=== PATIENT | female | born 1970 | race Two or more races ===

== ENCOUNTER 2016-06-07 12:03 | Emergency (ER) | payer OTHER ==
[~2016-06-07] VITALS: Ht 157.5 cm; Wt 78.0 kg
[2016-06-07 12:09] VITALS: Ht 157.5 cm; Wt 78.0 kg
[2016-06-07] MEDS ORDERED: SOD CHLORIDE 0.9% 1,000 ML IV STA (12:12)
[2016-06-07] MEDS ORDERED: DIPHENHYDRAMINE 50 MG INJ IV ONE (12:30)
[2016-06-07] MEDS ORDERED: METOCLOPRAMIDE 10 MG INJ IVPB ONE (12:30)
--- NOTE | 2016-06-07 13:31 | ERD ---
ER Documentation Chief Complaint Date/Time DATE: 06/07/16 TIME: 13:29 Chief Complaint C/O SUAZO. NEURO STATUS INTACT. HPI This 46-year-old female employee presents to the ER with nausea and a migraine headache. She has a history of migraines. This is on the right side her head that same side that she usually gets her migraines on. She has photophobia. No meningismus no fevers. She has no focal neurological weakness. ROS All systems reviewed and are negative except as per history of present illness. Physical Exam Vitals Vital Signs Date Time Temp Pulse Resp B/P Pulse Ox O2 Delivery O2 Flow Rate FiO2 06/07/16 12:09 98.0 107 18 129/67 100 Physical Exam Const: [] Mild distress Head: Atraumatic Eyes: Normal Conjunctiva, EOMI, PRL ENT: Normal External Ears, Nose and Mouth. Neck: Full range of motion..~ No meningismus. Neur: Awake and alert and oriented 3, cranial nerves II through XII intact, cerebellar intact finger to nose, normal gait Results 24 hrs Current Medications Medications (Trade) Dose Ordered Sig/Alba Route PRN Reason Start Time Stop Time Status Last Admin Dose Admin Sodium Chloride (NS) 1,000 ml @ 1,000 mls/hr Q1H STAT IV 06/07/16 12:12 06/07/16 13:11 DC 06/07/16 12:50 Diphenhydramine HCl (Benadryl) 12.5 mg ONCE ONCE IV 06/07/16 12:30 06/07/16 12:31 DC 06/07/16 12:50 Metoclopramide HCl (Reglan) 10 mg ONCE ONCE IVPB 06/07/16 12:30 06/07/16 12:31 DC 06/07/16 12:50 Procedures/MDM Migraine headache similar in character to her prior migraines. I gave her a headache cocktail of Benadryl 12.5 mg IV, Reglan 10 mg IV piggyback in normal saline 1 L. After this she felt much better headache was resolving and she wondered return to work. I have very low suspicion for meningitis or subarachnoid hemorrhage because of the character of the headache. Discharging primary care follow up in next 2-3 days. Departure Diagnosis: Primary Impression: Nausea Additional Impression: Migraine Condition: Stable Patient Instructions: Migraine Headache: Stages and Treatment Additional Instructions: Call your primary care doctor TOMORROW for an appointment during the next 2-3 days.See the doctor sooner or return here if your condition worsens before your appointment time. GERALDO BRASHER DO Jun 07, 2016 13:31
== END 2016-06-07 13:45 | disposition home or self-care (01) ==
LOC: E/R 12:03
DX: R11.0 Nausea (principal); G43.909 Migraine, unspecified, not intractable, without status migrainosus
CPT/HCPCS: 96374; 96375; 99284; J1200; J2765; J7030

== ENCOUNTER 2016-06-12 21:19 | Emergency (ER) | payer OTHER ==
[~2016-06-12] VITALS: Ht 157.5 cm; Wt 78.0 kg
[2016-06-12 21:19] VITALS: Ht 157.5 cm; Wt 78.0 kg
[2016-06-12] MEDS ORDERED: SOD CHLORIDE 0.9% 500 ML IV STA (21:36)
[2016-06-12] MEDS ORDERED: KETOROLAC 15 MG INJ IV STA (21:36)
--- NOTE | 2016-06-12 22:26 | ERD ---
ER Documentation Chief Complaint Date/Time DATE: 06/12/16 TIME: 22:24 Chief Complaint right sided flank pain [id number] left sided flank xtoday- HPI 46-year-old female who presents to the emergency room with flank pain. The patient describes 10-14 days of symptoms that include right-sided flank pain that is somewhat colicky and radiating to the right lower quadrant of the abdomen. She is now describing left-sided flank pain today. She describes scant hematuria. No dysuria urgency or frequency, no fevers or chills. Patient denies any nausea vomiting or diarrhea. No history of kidney stones. ROS All systems reviewed and are negative except as per history of present illness. Medications Home Meds Active Scripts Diclofenac Sodium* (Voltaren* Gel) 1% -100 Gm Gel, 2 GM TOP QID Y for PAIN, #1 TUB Prov:CUAUHTEMOC GUZMAN MD 06/13/16 Reported Medications Tramadol Hcl* (Ultram*) 50 Mg Tablet, 50 MG PO Q6H Y for PAIN, TAB 06/12/16 Allergies Allergies: Coded Allergies: No Known Allergy (Unverified , 06/12/16) PMhx/Soc Medical and Surgical Hx: pt denies Surgical Hx History of Surgery: No Anesthesia Reaction: No Hx Neurological Disorder: Yes (migraines) Hx Respiratory Disorders: No Hx Cardiac Disorders: No Hx Psychiatric Problems: No Hx Miscellaneous Medical Probl: No Hx Alcohol Use: No Hx Substance Use: No Hx Tobacco Use: No Smoking Status: Never smoker FmHx Family History: No diabetes Physical Exam Vitals Vital Signs Date Time Temp Pulse Resp B/P Pulse Ox O2 Delivery O2 Flow Rate FiO2 06/13/16 02:00 98.3 83 12 128/70 99 Room Air 06/12/16 21:19 98.3 97 12 154/97 99 Physical Exam General: Well developed, well nourished, no acute distress Head: Normocephalic, atraumatic. Eyes: Pupils equally reactive, EOM intact ENT: Moist mucous membranes Neck: Supple, no lymphadenopathy Respiratory: Lungs clear bilaterally, no distress Cardiovascular: RRR, no murmurs, rubs, or gallops Abdominal: Soft, non-tender, non-distended, no peritoneal signs Back: CVA tenderness noted to the right : Deferred MSK: No edema, no unilateral swelling, 5/5 strength Neurologic: Alert and oriented, moving all extremities, normal speech, no focal weakness, no cerebellar signs Skin: No rash Psych: Normal mood Result Diagram: 06/12/16222906/12/162229 Results 24 hrs Laboratory Tests Test 06/12/16 22:30 06/12/16 23:10 Alanine Aminotransferase (ALT/SGPT) 46IU/L Albumin 3.5g/dl Albumin/Globulin Ratio 0.94 Alkaline Phosphatase 85IU/L Anion Gap 17 Aspartate Amino Transf (AST/SGOT) 73IU/L Basophils # 0.010^3/ul Basophils % 0.1% Blood Morphology Comment Blood Urea Nitrogen 10mg/dl Calcium Level 7.6mg/dl Carbon Dioxide Level 19mmol/L Chloride Level 106mmol/L Creatinine 0.56mg/dl Direct Bilirubin 0.00mg/dl Eosinophils # 0.310^3/ul Eosinophils % 3.1% Globulin 3.70g/dl Glucose Level 83mg/dl Hematocrit 37.0% Hemoglobin 12.5g/dl Indirect Bilirubin 0.3mg/dl Large Platelets OCCASIONAL Lipase 68U/L Lymphocytes # 3.010^3/ul Lymphocytes % 31.0% Mean Corpuscular Hemoglobin 28.5pg Mean Corpuscular Hemoglobin Concent 33.8g/dl Mean Corpuscular Volume 84.3fl Mean Platelet Volume 8.0fl Monocytes # 0.510^3/ul Monocytes % 4.7% Neutrophils # 5.910^3/ul Neutrophils % 61.1% Nucleated Red Blood Cells # 0.010^3/ul Nucleated Red Blood Cells % 0.0/100WBC Platelet Count 31203^3/UL Platelet Estimate PLT APPEAR ADEQUATE Potassium Level 4.9mmol/L Red Blood Count 4.3910^6/ul Red Cell Distribution Width 13.4% Sodium Level 137mmol/L Total Bilirubin 0.3mg/dl Total Protein 7.2g/dl White Blood Count 9.610^3/ul Urine Bilirubin NEGATIVE Urine Clarity CLEAR Urine Color LT. YELLOW Urine Glucose NEGATIVE% Urine Hemoglobin NEGATIVE Urine Ketones NEGATIVE Urine Leukocyte Esterase NEGATIVE Urine Nitrite NEGATIVE Urine Specific [place] 1.010 Urine Total Protein NEGATIVE Urine Urobilinogen 0.2 E.U./dL Urine pH 5.5 Current Medications Medications (Trade) Dose Ordered Sig/Alba Route PRN Reason Start Time Stop Time Status Last Admin Dose Admin Ketorolac Tromethamine 15 mg 15 mg ONCE STAT IV 06/12/16 21:36 06/12/16 21:37 DC 06/12/16 21:51 Sodium Chloride (NS) 500 ml @ 500 mls/hr Q1H STAT IV 06/12/16 21:36 06/12/16 22:35 DC 06/12/16 21:51 Morphine Sulfate (morphine) 4 mg ONCE STAT IV 06/12/16 22:46 06/12/16 22:47 DC 06/12/16 22:59 Ondansetron HCl (Zofran Inj) 4 mg ONCE STAT IV 06/12/16 22:46 06/12/16 22:47 DC 06/12/16 22:59 Hydromorphone HCl (Dilaudid) 1 mg ONCE ONCE IV 06/13/16 00:31 06/13/16 00:32 DC 06/13/16 01:16 Ondansetron HCl (Zofran Inj) 4 mg ONCE STAT IV 06/13/16 01:52 06/13/16 01:53 DC 06/13/16 02:01 Procedures/MDM EKG, MONITORS, & DIAGNOSTIC IMAGING: CT abdomen and pelvis: IMPRESSION: Moderate retained stool within the colon. Scattered colonic diverticuli without evidence of diverticulitis. Poorly defined hypodense area within the mid right kidney probably represents a cyst. Further evaluation by ultrasound is recommended. Lobulated contour of the uterus suggestive of fibroid. Otherwise no acute abnormality identified within the abdomen and pelvis. Renal ultrasound IMPRESSION: Right renal cyst containing small wall calcification. Otherwise unremarkable renal ultrasound. LAB INTERPRETATION: No significant leukocytosis, normal urine, normal liver function panel MEDICAL DECISION MAKING: The patient presents with approximately 10-14 days of symptoms that include flank pain. Consider possible nephrolithiasis or ureterolithiasis. However also consider muscular skeletal etiology given that it is reproducible and present for approximately 10-14 days. I doubt cholelithiasis, cholecystitis or acute appendicitis. Very low clinical concern for acute ovarian process such as cyst, neoplasm, torsion. The patient is requesting CT imaging of the abdomen and pelvis which is reasonable given her duration of symptoms and possible CVA tenderness. ER COURSE: The patient continued to have pain during her course. The patient did receive multiple doses of pain medication with only moderate improvement. The patient' s diagnostic workup and laboratory testing are unrevealing. No leukocytosis no about a biliary obstruction, normal CT other than possible renal cyst. Renal ultrasound shows uncomplicated cyst. In my opinion her symptoms are possibly muscular skeletal versus neurologic such as radiculopathy. No evidence of acute aortic process. The patient is otherwise well-appearing in the emergency department. I believe outpatient management is most appropriate. The patient has a primary care physician. Laboratory testing and diagnostic imaging printed out for follow-up benefit. She is otherwise extremely well-appearing prior to discharge. I kept the patient and/or family informed of laboratory and diagnostic imaging results throughout the emergency room course. DISPOSITION PLAN: We discussed follow up with the patient's primary care doctor within 24 to 48 hours as needed. We also discussed return to the emergency room for worsening symptoms or worsening condition. Discharge Medications: Patient requests diclofenac gel Departure Diagnosis: Primary Impression: Flank pain Condition: Stable CUAUHTEMOC GUZMAN MD Jun 12, 2016 22:26
[2016-06-12] MEDS ORDERED: TRAM-40 PO (22:35)
[2016-06-12 22:45] LABS: ALBUMIN 3.5 g/dl (3.3-4.9); POTASSIUM 4.9 mmol/L (3.5-5.1)
[2016-06-12] MEDS ORDERED: ONDANSETRON 4 MG INJ IV STA (22:46)
[2016-06-12] MEDS ORDERED: morphine 4 MG/ML VIAL IV STA (22:46)
[2016-06-12 22:47] LABS: BASOPHILS % 0.1 % (0.0-2.0); EOSINOPHILS # 0.3 10^3/ul (0.0-0.5); EOSINOPHILS % 3.1 % (0.0-7.0); HEMOGLOBIN 12.5 g/dl (12.0-16.0); MEAN CORPUSCULAR HEMOGLOBIN 28.5 pg (29.0-33.0); MEAN CORPUSCULAR HGB CONC 33.8 g/dl (32.0-37.0); MEAN CORPUSCULAR VOLUME 84.3 fl (82.0-101.0); MONOCYTE # 0.5 10^3/ul (0.3-0.9); MONOCYTES % 4.7 % (0.0-11.0); NEUTROPHIL # 5.9 10^3/ul (1.6-7.5); NEUTROPHILS % 61.1 % (39.0-77.0); PLATELET COUNT 215 10^3/UL (140-440); RED BLOOD COUNT 4.39 10^6/ul (4.20-5.40); RED CELL DISTRIBUTION WIDTH 13.4 % (11.5-14.5); UNCORRECTED WBC 9.6 10^3/ul (4.8-10.8); WHITE BLOOD COUNT 9.6 10^3/ul (4.8-10.8)
[2016-06-12 22:48] LABS: ALBUMIN/GLOBULIN RATIO 0.94; BILIRUBIN,INDIRECT 0.3 mg/dl (0-1.1); BILIRUBIN,TOTAL 0.3 mg/dl (0.2-1.3); CALCIUM 7.6 mg/dl (8.4-10.2); CREATININE 0.56 mg/dl (0.44-1.00); TOTAL PROTEIN 7.2 g/dl (6.1-8.1)
[2016-06-12 22:51] LABS: CONDITION 1; LH ANALYZER COMMENTS 1; SUSPECT 1
[2016-06-12 23:25] LABS: ADD UMIC NO; URINE BILIRUBIN (Dip) NEGATIVE (NEGATIVE); URINE BLOOD (Dip) NEGATIVE (NEGATIVE); URINE COLOR LT. YELLOW (YELLOW); URINE GLUCOSE (Dip) NEGATIVE (NEGATIVE); URINE KETONES (Dip) NEGATIVE (NEGATIVE); URINE LEUKOCYTE ESTERASE (Dip) NEGATIVE (NEGATIVE); URINE NITRITE (Dip) NEGATIVE (NEGATIVE); URINE TOTAL PROTEIN (Dip) NEGATIVE (NEGATIVE); URINE UROBILINOGEN (Dip) 0.2 E.U./dL (0.1-1.0)
[2016-06-12 23:30] LABS: PLATELET ESTIMATE PLT APPEAR ADEQUATE
--- NOTE | 2016-06-13 00:13 | RADRPT ---
PROCEDURE: CT Abdomen and pelvis without contrast. CLINICAL INDICATION: Abdominal pain. TECHNIQUE: CT scan of the abdomen and pelvis was performed on a multi-detector high-resolution CT scanner. Contiguous axial images were obtained from the lung bases to the ischial tuberosities wit hout intravenous contrast. Coronal and sagittal reformatted images were also obtained. Images were reviewed on the PACS workstation. One or more of the following dose reduction techniques were used: - Automated exposure control. - Adjustment of the mA and/or kV according to patient size. - Use of iterative reconstruction technique. Exam CTD/vol = 21.84 mGy. Total exam DLP = 1195.93 mGy-cm. COMPARISON: None. FINDINGS: Evaluation of the lung bases demonstrates no pleural or parenchymal disease. Abdomen: The liver is normal in size. There is no focal mass or dilatation of the biliary tree. T he gallbladder is not distended. The spleen, pancreas and bilateral adrenal glands are within brian l limits. Bilateral kidneys are normal in size with a poorly defined hypodense area within the mid- right kidney measuring approximately 1.8 cm. There is no radiopaque renal or ureteral calculus iden tified. There is no hydronephrosis or hydroureter. There is no retroperitoneal adenopathy. The ab dominal aorta is of normal caliber. There is moderate retained stool within the colon. There is no bowel obstruction or free air. A no rmal appendix is identified. There are scattered diverticuli within the descending colon without ev idence of diverticulitis. There is no ascites. Pelvis: The bladder is unremarkable. The uterus is mildly lobulated suggestive of fibroid. There is no significant pelvic adenopathy or free fluid. Evaluation of the osseous structures demonstrates no suspicious lytic or blastic lesion. IMPRESSION: Moderate retained stool within the colon. Scattered colonic diverticuli without evidence of diverticulitis. Poorly defined hypodense area within the mid right kidney probably represents a cyst. Further evalua tion by ultrasound is recommended. Lobulated contour of the uterus suggestive of fibroid. Otherwise no acute abnormality identified within the abdomen and pelvis. .John Bunch MD, Date Time Electronically viewed and signed by .John Bunch MD, on 06/13/2016 00:12 .T/
[2016-06-13] MEDS ORDERED: HYDROmorphONE 1 MG/ML SYG IV ONE (00:31)
--- NOTE | 2016-06-13 01:49 | RADRPT ---
PROCEDURE: Renal US. CLINICAL INDICATION: Abdominal pain. TECHNIQUE: Multiple sonographic images of the kidneys were obtained. The images were reviewed on a PACS workstation. COMPARISON: No prior studies are available for comparison. FINDINGS: The kidneys are well visualized with color flow. The right kidney measures 10.8 cm. The left kidney measures 10.1 cm. There is a cyst within the mid right kidney measuring 2.2 x 1.6 x 1.7 cm containin g an echogenic wall calcification measuring 0.9 cm. There is no evidence for obstructive uropathy. T he bladder is unremarkable. IMPRESSION: Right renal cyst containing small wall calcification. Otherwise unremarkable renal ultrasound. .John Bunch MD, MD Date Time Electronically viewed and signed by .John Bunch MD, MD on 06/13/2016 01:49 .T/
[2016-06-13] MEDS ORDERED: ONDANSETRON 4 MG INJ IV STA (01:52)
[2016-06-13] MEDS ORDERED: DICL100G37 TOP (02:06)
[2016-06-13] MEDS ORDERED: ONDANSETRON (ODT) 4 MG TAB ODT ONE (02:31)
[2016-06-13 02:42] VITALS: BP 126/72; PULSE 84; RESP 12; TEMP 98.3
== END 2016-06-13 02:43 | disposition home or self-care (01) ==
LOC: E/R 21:19
DX: R10.9 Unspecified abdominal pain (principal)
CPT/HCPCS: 74176; 76775; 80053; 81003; 83690; 85025; 96374; 96375; 96376; 99285; J1170; J1885; J2270; J2405; J7040

== ENCOUNTER 2018-05-15 21:20 | Emergency (ER) | END 2018-05-16 03:15 | disposition home or self-care (01) ==